=== PATIENT | male | born 1985 | race Caucasian/White ===

== ENCOUNTER 2017-04-19 14:21 | Emergency (ER) | payer OTHER ==
[~2017-04-19] VITALS: Ht 180.3 cm; Wt 81.8 kg
[2017-04-19 14:25] VITALS: BP 115/68
== END 2017-04-19 17:05 | disposition home or self-care (01) ==
LOC: ED 14:21
DX: S02.2XXA Fracture of nasal bones, initial encounter for closed fracture (principal); Z91.013 Allergy to seafood; W21.03XA Struck by baseball, initial encounter; Y93.64 Activity, baseball; Y99.8 Other external cause status; Y92.89 Other specified places as the place of occurrence of the external cause